=== PATIENT | male | born 1945 | race American Indian/Alaskan Native ===

== ENCOUNTER 2019-12-11 07:11 | Day surgery (SDC) | payer OTHER ==
[~2019-12-11 07:11] MED LIST: SODIUM CHLORIDE 0.9% 1000 ML 1,000 ML IV SCH
[2019-12-11] MEDS ORDERED: LIDOCAINE MPF (2%) 20 MG/1 ML VIAL 5 ML ONE (08:00)
--- NOTE | 2019-12-11 08:09 | Anesthesia Consultation ---
Anesthesia Consult and Med Hx Date of service: 12/11/19 - Airway Anesthetic Teeth Evaluation: Good ROM Head & Neck: Adequate Mental/Hyoid Distance: Adequate Mallampati Class: Class II Intubation Access Assessment: Probably Good - Pre-Operative Health Status ASA Pre-Surgery Classification: ASA3 Proposed Anesthetic Plan: MAC - Pulmonary Hx Smoking: No Hx Asthma: No Hx Respiratory Symptoms: No SOB: No COPD: No Home Oxygen Therapy: No Hx Pneumonia: No Hx Sleep Apnea: Yes (uses cpap) - Cardiovascular System Hx Hypertension: No Hx Coronary Artery Disease: No Hx Heart Attack/AMI: No Hx Angina: No Hx Percutaneous Transluminal Coronary Angioplasty (PTCA): No Hx Cardia Arrhythmia: No Hx Pacemaker: No Hx Internal Defibrillator: No Hx Valvular Heart Disease: No Hx Heart Murmur: No Hx Peripheral Vascular Disease: Yes (right leg) - Central Nervous System Hx Neuromuscular Disorder: No Hx Seizures: No CVA: No Hx Back Pain: No Hx Psychiatric Problems: Yes (ptsd) - Gastrointestinal Hx Ulcer: No Hx Gastroesophageal Reflux Disease: No - Endocrine Hx Renal Disease: No Hx End Stage Renal Disease: No Hx Cirrhosis: No Hx Liver Disease: No Hx Insulin Dependent Diabetes: No Hx Non-Insulin Dependent Diabetes: Yes Hx Thyroid Disease: No Hx Hypothyroidism: No Hx Hyperthyroidism: No - Hematic Hx Anemia: No Hx Sickle Cell Disease: No - Other Systems Hx Alcohol Use: Yes (occ.) Hx Substance Use: No Hx Cancer: No Hx Obesity: Yes
--- NOTE | 2019-12-11 08:19 | Anesthesia Day of Surgery ---
Anesthesia Day of Surgery - Day of Surgery Patient Examined: Yes Patient H&P Reviewed: Yes Patient is NPO: Yes Beta Blockers: No
[2019-12-11] MEDS ORDERED: propofoL 200 MG/20 ML VIAL IV ONE ×2 (09:18)
--- NOTE | 2019-12-11 09:59 | Procedure Note ---
Date of procedure: 12/11/19 Pre-op diagnosis: GERD/ Colon Polyp Screening/P/H/O Colon Polyps Post-op diagnosis: other (Mild to Moderate Erosive Esophagitis/ Gastritis/ Normal colon Mucosa (No Colon Polyps or diverticular disease or Internal Hemorrhoids noted)) Procedure: EGD with Biopsy and Colonoscopy [place] [facility] [place]: DIANA SHIELDS Estimated blood loss: minimal Pathology: list Specimen disposition: to lab Condition: stable Disposition: same day (Treat with PPI. Avoid aspirin and NSAID for 5 days; otherwise resume home medication. Follow up in 1 to 2 weeks ([phone]).)
--- NOTE | 2019-12-11 10:01 | Operative Report ---
PROCEDURE: Esophagogastroduodenoscopy with biopsy. INDICATIONS: The patient is a 74-year-old -[place] gentleman with an underlying history of diabetes mellitus type 2 and prior history of colon polyp, was lately been having also some GERD symptoms. EGD was done to make sure there was not any significant upper GI pathology present. PROCEDURE IN DETAIL: The procedure was done after getting informed consent with MAC anesthesia. Instrument was passed through the hypopharynx into the esophagus, which showed [id number] erosive esophagitis. Photodocumentation and biopsy was done from this area. The stomach showed gastric erosion and gastritis in the antrum. Pylorus was patent. Duodenum in the first and the second portion appeared normal. Biopsy was also done from the gastric antrum, the gastric body and angular incisura to rule out for H. pylori and atrophic gastritis. There was minimal bleeding associated with the procedure. ASSESSMENT: Gastroesophageal reflux disease symptoms, mild to moderate erosive esophagitis, gastritis. PLAN: To treat the patient with PPI. Have the patient avoid aspirin and aspirin-related products for the next few days. A colonoscopy was also to be done as part of colon polyp screening and because of the patient's prior history of colon polyps. The procedure was done in the GI lab with assistance of the GI lab team which included DECLAN Chacon, chucky Moreno and with the assistance of Anesthesia. JOB# [id number] MARIE/ROXANE
--- NOTE | 2019-12-11 10:05 | Operative Report ---
PROCEDURE: Colonoscopy. INDICATIONS: The patient is a 74-year-old -[place] gentleman with an underlying history of diabetes mellitus type 2, prior history of colon polyp. Colonoscopy was done to make sure there was not any recurrence of any polyps. PROCEDURE IN DETAIL: The procedure was done after getting informed consent with MAC anesthesia. Initial rectal exam was unremarkable. Instrument was passed through the rectum onto the cecum, which was identified with ileocecal valve and appendiceal orifice. The cecum was also visualized on the retroverted view. No additional pathology was noted. The terminal ileum was briefly intubated, showed normal terminal ileal mucosa. Cecum, ascending colon, transverse colon, descending colon, and sigmoid showed normal mucosa. There was no evidence of any polyps, colitis or diverticular disease, and the rectum appeared normal on the retroverted view. ASSESSMENT: Colon polyp screening, history of colon polyps, none now. No internal hemorrhoids or diverticular disease noted. There was no bleeding associated with the procedure. No complications associated with the procedure. The patient will be placed on PPI because of the EGD findings of mild to moderate erosive esophagitis, gastritis. The patient will be asked to stay away from aspirin and aspirin-related products for the next few days, but otherwise resume home medication and follow up in the office in 1-2 weeks' time. The procedure was done in the GI lab with assistance of the GI lab team which included Lucy MANRIQUEZ as well as Tiffanie locke and with the assistance of Anesthesia. [facility]# [id number] MARIE/ROXANE
[2019-12-11 10:54] VITALS: BP 146/74
--- NOTE | 2019-12-11 12:51 | Post Anesthesia Evaluation ---
- Post Anesthesia Evaluation Patient Participated: Yes Airway Patent: Yes Stable Respiratory Function: Yes Nausea/Vomiting: No Temp > 96.8F: Yes Pain Manageable: Yes Adequeate Hydration: Yes Anesthesia Complications: No Block Receding Appropriately: Not Applicable Patient on Ventilator: No
== END 2019-12-11 11:00 | disposition home or self-care (01) ==
LOC: GIO 07:11
DX: Z12.11 Encounter for screening for malignant neoplasm of colon (principal); K21.0 Gastro-esophageal reflux disease with esophagitis; K29.70 Gastritis, unspecified, without bleeding; E11.51 Type 2 diabetes mellitus with diabetic peripheral angiopathy without gangrene; G47.30 Sleep apnea, unspecified; Z86.010 Personal history of colon polyps; Z79.899 Other long term (current) drug therapy; Z79.82 Long term (current) use of aspirin; Z72.89 Other problems related to lifestyle
CPT/HCPCS: 43239; 45378; 82962; 88305; 88342; J2704; J7030